=== PATIENT | female | born 1960 | race Caucasian/White ===

== ENCOUNTER 2022-09-26 14:15 | Outpatient (CLI) | payer BC ==
[~2022-09-26] VITALS: Ht 165.1 cm; Wt 149.7 kg
[2022-09-26 14:40] LABS: TOTAL HEMOGLOBIN 13.7 G/dl (12.0-16.0)
[2022-09-26] MEDS ORDERED: albuterol 2.5 MG/3 ML nebule NEB PRN (14:50)
== END 2022-09-26 23:59 | disposition home or self-care (01) ==
LOC: RT 14:15
PROVIDERS: ATTEND Internal Medicine Pulmonary Disease
DX: J44.9 Chronic obstructive pulmonary disease, unspecified (principal); Z87.891 Personal history of nicotine dependence; Z79.899 Other long term (current) drug therapy
CPT/HCPCS: 85018; 94060; 94727; 94729; 94760